=== PATIENT | female | born 1950 | race American Indian/Alaskan Native ===

== ENCOUNTER 2016-06-24 11:54 | Emergency (ER) | payer MEDICARE ==
--- NOTE | 2016-06-24 12:13 | Emergency Department Report ---
Chief Complaint: Abdominal Pain Stated Complaint: STOMACH PAIN Time Seen by Provider: 06/24/16 12:08 - HPI History of Present Illness: She is a 66-year-old female who presents to ED complaining of need, nonradiating , sharp, constant, 10/10 intensity abdominal pain 1 day. Patient states yesterday she is supposed to sounds and some wheezing when she lay down and after a while she began experiencing abdominal pain. Patient states this morning with COPD she had one episode of vomiting. Patient denies diarrhea or watery stools. Patient denies fevers/chills/sinus of restless chest pain/dizziness/headache or any other problems. - ROS Review of Systems: As noted in HPI - Exam Vital Signs: Vital Signs 06/24/16 11:56 Temperature 98.0 F Pulse Rate 65 Respiratory 21 Rate Blood Pressure 171/93 O2 Sat by Pulse 99 Oximetry Physical Exam: GENERAL: Alert and oriented x3, no apparent distress, Normal Gait, atraumatic. HEAD: Head is normocephalic and a-traumatic. NECK: Supple. Non edematous, No carotid bruits. No lymphadenopathy or thyromegaly. LUNGS: Symetrical with respiration, No wheezing, no rales or crackles, CTAB. HEART: S1, S2 present, regular rate and rhythm without murmur, no rubs, no gallops. ABDOMEN: No organomegaly was noted, obese rounded abdomen, Positive bowel sounds , soft, and non-distended. . Mild tenderness to palpation of the mid umbilical area. NO CVA tenderness. SKIN: Warm and dry, No lesions, No ulceration or induration present. MSE screening note: Focused history and physical exam performed. Due to findings the following was ordered: ED Medical Decision Making - Medical Decision Making Abdominal pain protocol ordered. Vital signs stable. Patient is in no acute or respiratory distress. Patient awaiting to see ED physician. ED Disposition for MSE Condition: Stable Instructions: Abdominal Pain (ED)
[2016-06-24 13:06] LABS: Basophils % (Auto) 0.3 % (0.0-1.8); Eosinophils % (Auto) 1.5 % (0.0-4.3); Hematocrit 40.2 % (30.3-42.9); Hemoglobin 13.5 gm/dl (10.1-14.3); Mean Corpuscular HGB Conc 34 % (30-34); Mean Corpuscular Hemoglobin 31 pg (28-32); Mean Corpuscular Volume 91 fl (79-97); Platelet Count 234 K/mm3 (140-440); Red Cell Distribution Width 14.1 % (13.2-15.2); White Blood Count 10.6 K/mm3 (4.5-11.0)
[2016-06-24 13:09] LABS: Bacteria,Urine 1+ /HPF (Negative); Bilirubin,Urine NEG (Negative); Blood,Urine NEG (Negative); Ketones,Urine NEG (Negative); Leukocyte Esterase,Urine NEG (Negative); Mucus,Urine FEW /HPF; Nitrite,Urine NEG (Negative); Urobilinogen,Urine < 2.0 mg/dL (<2.0)
[2016-06-24 13:32] LABS: Alanine Aminotransferase 9 units/L (7-56); Albumin 3.9 g/dL (3.9-5); Albumin/Globulin Ratio 1.1 %; Alkaline Phosphatase 71 units/L (35-129); Bilirubin,Total 0.4 mg/dL (0.1-1.2); Blood Urea Nitrogen 10 mg/dL (7-17); Calcium 9.6 mg/dL (8.4-10.2); Carbon Dioxide 26 mmol/L (22-30); Chloride 95.9 mmol/L (98-107); Glucose 231 mg/dL (65-100); Lipase 81 units/L (13-60); Potassium 4.6 mmol/L (3.6-5.0); Sodium 138 mmol/L (137-145); Total Protein 7.4 g/dL (6.3-8.2)
[2016-06-24 13:50] LABS: Anion Gap 21 mmol/L
[2016-06-24] MEDS ORDERED: ZOFRAN IV ONE (16:30)
[2016-06-24] MEDS ORDERED: MORPHINE IV ONE ×3 (16:30→17:00)
--- NOTE | 2016-06-24 16:32 | Emergency Department Report ---
ED Abdominal Pain HPI - General Chief Complaint: Abdominal Pain Stated Complaint: STOMACH PAIN Time Seen by Provider: 06/24/16 16:17 Source: patient, family Mode of arrival: Ambulatory Limitations: No Limitations - History of Present Illness Initial Comments: Patient here complaining of abdominal pain across her mid abdomen and radiating down to her lower abdomen since yesterday. She said it started after she ate anything was. She is complaining of nausea this morning and also vomiting 1. Denies any diarrhea. Denies any fever. No [id number] medication taken. She reports the pain is 10 out of 10 and feels sharp. Denies alcohol use. Denies any urinary burning frequency or urgency. MD Complaint: abdominal pain Onset/Timin -: days(s) Location: LUQ, RUQ Radiation: LLQ, RLQ Migration to: no migration Severity: severe Severity scale (0 -10): 10 Quality: sharp Consistency: constant Improves With: nothing Worsens With: eating, vomiting, movement Context: other (unknown) Associated Symptoms: nausea, vomiting. denies: diarrhea, fever, chills, constipation, dysuria, hematemesis, hematochezia, hematuria, anorexia, syncope - Related Data Previous Rx's Medication Instructions Recorded Last Taken Type AtorvaSTATin [Lipitor] 40 mg PO QHS #30 tablet 04/26/16 Unknown Rx Clopidogrel Bisulfate [Plavix] 75 mg PO DAILY #30 tablet 04/26/16 Unknown Rx FLUoxetine [PROzac] 20 mg PO QDAY #30 capsule 04/26/16 Unknown Rx Fenofibric Acid (Choline) 135 mg PO QDAY #30 capsule. 04/26/16 Unknown Rx [Trilipix] Insulin Aspart [NovoLOG Flexpen] 25 units SQ AC PRN #1 insuln.pen 04/26/16 Unknown Rx Insulin Detemir [Levemir VIAL] 30 units SUB-Q DAILY #1 vial 04/26/16 Unknown Rx Meloxicam [Mobic] 15 mg PO DAILY #15 tablet 04/26/16 Unknown Rx Metoprolol [Lopressor TAB] 25 mg PO DAILY #30 tablet 04/26/16 Unknown Rx Olmesartan/Amlodipin/Hcthiazid 1 each PO QDAY #30 tablet 04/26/16 Unknown Rx [Tribenzor 40-10-25 mg] Thyroid,Pork [Shingleton Thyroid] 120 mg PO DAILY #30 tablet 04/26/16 Unknown Rx Dicyclomine [Bentyl] 20 mg PO QID #10 tablet 06/24/16 Unknown Rx Promethazine [Phenergan TAB] 25 mg PO Q6HR PRN #20 tab 06/24/16 Unknown Rx oxyCODONE /ACETAMINOPHEN [Percocet 1 tab PO Q6HR PRN #16 tablet 06/24/16 Unknown Rx 5/325] Allergies Allergy/AdvReac Type Severity Reaction Status Date / Time ALEJANDRO Inhibitors Allergy Angioedema Verified 06/24/16 11:58 ED Review of Systems ROS: Stated complaint: STOMACH PAIN Other details as noted in HPI Comment: All other systems reviewed and negative Constitutional: denies: chills, fever Respiratory: no symptoms reported Cardiovascular: denies: chest pain, palpitations, edema, syncope Gastrointestinal: abdominal pain, nausea, vomiting. denies: diarrhea, constipation Genitourinary: denies: urgency, dysuria, frequency, hematuria, discharge, abnormal menses Musculoskeletal: denies: back pain, joint swelling, arthralgia Skin: denies: rash Neurological: denies: headache, weakness, numbness, paresthesias ED Past Medical Hx - Past Medical History Previous Medical History?: Yes Hx Hypertension: Yes Hx Congestive Heart Failure: No Hx Diabetes: Yes Hx Arthritis: Yes Hx Seizures: Yes (As a young child) Hx Asthma: No Hx COPD: No Hx HIV: No Additional medical history: 'thyroid problems'. CAD. HIGH CHOLESTEROL - Surgical History Past Surgical History?: Yes Hx Open Heart Surgery: Yes Additional Surgical History: x 2, kidney surgery - Family History Family history: no significant - Social History Smoking Status: Former Smoker Substance Use Type: None - Medications Home Medications: Home Medications Medication Instructions Recorded Confirmed Last Taken Type AtorvaSTATin [Lipitor] 40 mg PO QHS #30 tablet 04/26/16 Unknown Rx Clopidogrel Bisulfate [Plavix] 75 mg PO DAILY #30 tablet 04/26/16 Unknown Rx FLUoxetine [PROzac] 20 mg PO QDAY #30 capsule 04/26/16 Unknown Rx Fenofibric Acid (Choline) 135 mg PO QDAY #30 capsule. 04/26/16 Unknown Rx [Trilipix] Insulin Aspart [NovoLOG Flexpen] 25 units SQ AC PRN #1 insuln.pen 04/26/16 Unknown Rx Insulin Detemir [Levemir VIAL] 30 units SUB-Q DAILY #1 vial 04/26/16 Unknown Rx Meloxicam [Mobic] 15 mg PO DAILY #15 tablet 04/26/16 Unknown Rx Metoprolol [Lopressor TAB] 25 mg PO DAILY #30 tablet 04/26/16 Unknown Rx Olmesartan/Amlodipin/Hcthiazid 1 each PO QDAY #30 tablet 04/26/16 Unknown Rx [Tribenzor 40-10-25 mg] Thyroid,Pork [Shingleton Thyroid] 120 mg PO DAILY #30 tablet 04/26/16 Unknown Rx Dicyclomine [Bentyl] 20 mg PO QID #10 tablet 06/24/16 Unknown Rx Promethazine [Phenergan TAB] 25 mg PO Q6HR PRN #20 tab 06/24/16 Unknown Rx oxyCODONE /ACETAMINOPHEN [Percocet 1 tab PO Q6HR PRN #16 tablet 06/24/16 Unknown Rx 5/325] ED Physical Exam - General Limitations: No Limitations General appearance: alert, in no apparent distress - Head Head exam: Present: atraumatic, normocephalic, normal inspection - Eye Eye exam: Present: normal appearance, PERRL, EOMI. Absent: periorbital swelling , periorbital tenderness Pupils: Present: normal accommodation - ENT ENT exam: Present: normal exam, normal orophraynx, mucous membranes moist, TM's normal bilaterally, normal external ear exam - Neck Neck exam: Present: normal inspection, full ROM. Absent: tenderness, meningismus, lymphadenopathy - Respiratory Respiratory exam: Present: normal lung sounds bilaterally. Absent: respiratory distress, chest wall tenderness - Cardiovascular Cardiovascular Exam: Present: regular rate, normal rhythm, normal heart sounds - GI/Abdominal GI/Abdominal exam: Present: soft, tenderness, guarding, rebound, normal bowel sounds. Absent: rigid, organomegaly, mass, bruit, pulsatile mass, hernia - Extremities Exam Extremities exam: Present: normal inspection, full ROM, normal capillary refill. Absent: tenderness, pedal edema, joint swelling, calf tenderness - Back Exam Back exam: Present: normal inspection, full ROM. Absent: tenderness, CVA tenderness (R), CVA tenderness (L), muscle spasm, paraspinal tenderness, vertebral tenderness, rash noted - Neurological Exam Neurological exam: Present: alert, oriented X3, normal gait, reflexes normal. Absent: motor sensory deficit - Psychiatric Psychiatric exam: Present: normal affect, normal mood - Skin Skin exam: Present: warm, dry, intact, normal color. Absent: rash ED Course Vital Signs 06/24/16 11:56 Temperature 98.0 F Pulse Rate 65 Respiratory 21 Rate Blood Pressure 171/93 O2 Sat by Pulse 99 Oximetry Vital Signs 06/24/16 06/24/16 06/24/16 11:56 16:46 17:55 Temperature 98.0 F Pulse Rate 65 Respiratory 21 18 Rate Blood Pressure 171/93 Blood Pressure [Left] O2 Sat by Pulse 99 100 100 Oximetry 06/24/16 18:04 Temperature 97.7 F Pulse Rate 75 Respiratory 18 Rate Blood Pressure 202/114 Blood Pressure 164/90 [Left] O2 Sat by Pulse 94 Oximetry - Reevaluation(s) Reevaluation #1: 06/24/16 17:00 Patient given morphine 4 mg and Zofran 8 mg IV and awaiting IV CT to abdomen and pelvis 06/24/16 18:18 Reevaluation #2: 06/24/16 18:18 Patient pain controlled and nausea relief. She discharged home with pain medicine and nausea medication. ED Medical Decision Making - Lab Data Result diagrams: 06/24/16 12:37 06/24/16 12:37 Lab Results 06/24/16 06/24/16 06/24/16 Range/Units 12:37 12:37 12:37 WBC 10.6 (4.5-11.0) K/mm3 RBC 4.40 (3.65-5.03) M/mm3 Hgb 13.5 (10.1-14.3) gm/dl Hct 40.2 (30.3-42.9) % MCV 91 (79-97) fl MCH 31 (28-32) pg MCHC 34 (30-34) % RDW 14.1 (13.2-15.2) % Plt Count 234 (140-440) K/mm3 Lymph % (Auto) 17.5 (13.4-35.0) % Keith % (Auto) 4.3 (0.0-7.3) % Eos % (Auto) 1.5 (0.0-4.3) % Baso % (Auto) 0.3 (0.0-1.8) % Lymph # 1.8 (1.2-5.4) K/mm3 Keith # 0.5 (0.0-0.8) K/mm3 Eos # 0.2 (0.0-0.4) K/mm3 Baso # 0.0 (0.0-0.1) K/mm3 Seg Neutrophils % 76.4 H (40.0-70.0) % Seg Neutrophils # 8.1 H (1.8-7.7) K/mm3 Sodium (137-145) mmol/L Potassium (3.6-5.0) mmol/L Chloride (98-107) mmol/L Carbon Dioxide (22-30) mmol/L Anion Gap mmol/L BUN (7-17) mg/dL Creatinine (0.7-1.2) mg/dL Estimated GFR ml/min BUN/Creatinine Ratio % Glucose (65-100) mg/dL Calcium (8.4-10.2) mg/dL Total Bilirubin (0.1-1.2) mg/dL AST (5-40) units/L ALT (7-56) units/L Alkaline Phosphatase (35-129) units/L Total Protein (6.3-8.2) g/dL Albumin (3.9-5) g/dL Albumin/Globulin Ratio % Lipase (13-60) units/L HCG, Qual Negative (Negative) Urine Color Straw (Yellow) Urine Turbidity Clear (Clear) Urine pH 7.0 (5.0-7.0) Ur Specific [place] 1.010 (1.003-1.030) Urine Protein 100 mg/dl (Negative) mg/dL Urine Glucose (UA) 50 (Negative) mg/dL Urine Ketones Neg (Negative) mg/dL Urine Blood Neg (Negative) Urine Nitrite Neg (Negative) Urine Bilirubin Neg (Negative) Urine Urobilinogen < 2.0 (<2.0) mg/dL Ur Leukocyte Esterase Neg (Negative) Urine WBC (Auto) 1.0 (0.0-6.0) /HPF Urine RBC (Auto) 3.0 (0.0-6.0) /HPF U Epithel Cells (Auto) 2.0 (0-13.0) /HPF Urine Bacteria (Auto) 1+ (Negative) /HPF Urine Mucus Few /HPF 06/24/16 Range/Units 12:37 WBC (4.5-11.0) K/mm3 RBC (3.65-5.03) M/mm3 Hgb (10.1-14.3) gm/dl Hct (30.3-42.9) % MCV (79-97) fl MCH (28-32) pg MCHC (30-34) % RDW (13.2-15.2) % Plt Count (140-440) K/mm3 Lymph % (Auto) (13.4-35.0) % Keith % (Auto) (0.0-7.3) % Eos % (Auto) (0.0-4.3) % Baso % (Auto) (0.0-1.8) % Lymph # (1.2-5.4) K/mm3 Keith # (0.0-0.8) K/mm3 Eos # (0.0-0.4) K/mm3 Baso # (0.0-0.1) K/mm3 Seg Neutrophils % (40.0-70.0) % Seg Neutrophils # (1.8-7.7) K/mm3 Sodium 138 (137-145) mmol/L Potassium 4.6 (3.6-5.0) mmol/L Chloride 95.9 L (98-107) mmol/L Carbon Dioxide 26 (22-30) mmol/L Anion Gap 21 mmol/L BUN 10 (7-17) mg/dL Creatinine 0.8 (0.7-1.2) mg/dL Estimated GFR > 60 ml/min BUN/Creatinine Ratio 12.50 % Glucose 231 H (65-100) mg/dL Calcium 9.6 (8.4-10.2) mg/dL Total Bilirubin 0.4 (0.1-1.2) mg/dL AST 13 (5-40) units/L ALT 9 (7-56) units/L Alkaline Phosphatase 71 (35-129) units/L Total Protein 7.4 (6.3-8.2) g/dL Albumin 3.9 (3.9-5) g/dL Albumin/Globulin Ratio 1.1 % Lipase 81 H (13-60) units/L HCG, Qual (Negative) Urine Color (Yellow) Urine Turbidity (Clear) Urine pH (5.0-7.0) Ur Specific [place] (1.003-1.030) Urine Protein (Negative) mg/dL Urine Glucose (UA) (Negative) mg/dL Urine Ketones (Negative) mg/dL Urine Blood (Negative) Urine Nitrite (Negative) Urine Bilirubin (Negative) Urine Urobilinogen (<2.0) mg/dL Ur Leukocyte Esterase (Negative) Urine WBC (Auto) (0.0-6.0) /HPF Urine RBC (Auto) (0.0-6.0) /HPF U Epithel Cells (Auto) (0-13.0) /HPF Urine Bacteria (Auto) (Negative) /HPF Urine Mucus /HPF - Radiology Data Radiology results: report reviewed, image reviewed CT scan of the abdomen and pelvis with IV contrast revealed slight cardiomegaly , slight linear scar versus atelectasis in both lung bases, suggesting a mild hepatic steatosis, surgically absent gallbladder, uterus and possible appendix. Fat stranding in the right upper quadrant and adjacent to the pancreatic head suspicious for mild pancreatitis.. Pancreatic body and tail. - Medical Decision Making ED course: Patient here for abdominal pain and nausea. He was given morphine 4 mg IV and Zofran 8 mg IV which relieved her nausea and her abdominal pain. Urine results are negative for infection. CT scan of the abdomen and pelvis with IV contrast revealed mild pancreatitis. Lab work reveals lipase at 81 slightly elevated. I discussed lab results and diagnostic tests with patient. I discussed the patient that if pain and nausea vomiting is not controlled. Medication that she will need to return to emergency room otherwise follow-up with outpatient gastroenterology. Patient given Percocet 5/325 one tablet and then 20 mg IM prior to discharge. She voices understanding of discharge plan and discharged home with her family with prescription for Percocet, Bentyl and Phenergan. Critical care attestation.: If time is entered above; I have spent that time in minutes in the direct care of this critically ill patient, excluding procedure time. ED Disposition Clinical Impression: Hepatic steatosis, Abdominal pain in female patient Pancreatitis, acute Qualifiers: Pancreatitis type: unspecified pancreatitis type Acute pancreatitis complication: no infection or necrosis Qualified Code(s): K85.90 - Acute pancreatitis without necrosis or infection, unspecified Nausea & vomiting Qualifiers: Vomiting type: unspecified Vomiting Intractability: non-intractable Qualified Code(s): R11.2 - Nausea with vomiting, unspecified Disposition: DISCHARGED TO HOME OR SELFCARE Is pt being admited?: No Does the pt Need Aspirin: No Condition: Stable Instructions: Abdominal Pain (ED), Pancreatitis (ED), Non-Alcoholic Fatty Liver Disease (ED), Acute Nausea and Vomiting (ED), Clear Liquid Diet (ED) Additional Instructions: Please follow up with motor vehicle field representative as instructed. Clear liquid diet for 72 hours. Take medication as instructed. Please return to emergency room if nausea, vomiting and abdominal pain is not controlled with medication Please check your blood sugar frequently while on clear liquid diet medication. Prescriptions: Dicyclomine [Bentyl] 20 mg PO QID #10 tablet oxyCODONE /ACETAMINOPHEN [Percocet 5/325] 1 tab PO Q6HR PRN #16 tablet PRN Reason: Pain Promethazine [Phenergan TAB] 25 mg PO Q6HR PRN #20 tab PRN Reason: Nausea Referrals: PRIMARY CAREMD [Primary Care Provider] - 06/26/16 [facility] [Provider Group] - 06/26/16 Forms: Accompanied Note, Work/School Release Form(ED)
[2016-06-24] MEDS ORDERED: NACL ONE (16:52)
--- NOTE | 2016-06-24 17:46 | Cat Scan Report ---
FINAL REPORT EXAM: CT ABDOMEN PELVIS W CON HISTORY: abdominal pain with nausea TECHNIQUE: CT examination of the ABDOMEN after IV contrast CT examination of the PELVIS after IV contrast PRIORS: 04/25/2016 FINDINGS: Slight linear scar versus atelectasis in both lung bases. Healed right rib fractures. Slight cardiomegaly in visualized portion of heart. Nonspecific diffusely decreased density of liver parenchyma may reflect fatty infiltration. No visualized focal liver lesion. Surgically absent gallbladder. Normal-appearing adrenals and spleen. Intact normal caliber abdominal aorta with moderate calcified and noncalcified plaque. Normal caliber IVC. Abnormal fat stranding is noted adjacent to the pancreatic head with extension into the right upper quadrant fat. No abnormal fluid collection. Findings suspicious for mild pancreatitis. Normal-appearing pancreatic body and tail. Normal-appearing kidneys and ureters. Normal-appearing stomach and duodenum. No small bowel distention in the abdomen and pelvis. No pelvic free fluid. Normal-appearing urinary bladder, rectum, and adnexa. Surgically absent uterus. Normal-appearing sigmoid colon. No gross ascites, free air, or colonic distention. Normal-appearing cecum and terminal ileum. Appendix not visualized. No pericecal inflammation. IMPRESSION: Fat stranding in right upper quadrant and adjacent to the pancreatic head suspicious for mild pancreatitis. Normal-appearing pancreatic body and tail Slight cardiomegaly Slight linear scar versus atelectasis in both lung bases Suggestion of mild hepatic steatosis Surgically absent gallbladder, uterus, and possibly appendix
[2016-06-24] MEDS ORDERED: BENTYL IM ONE (18:19)
[2016-06-24] MEDS ORDERED: PERCOCET 5/325 PO ONE (18:19)
[2016-06-24 18:21] VITALS: BP 164/90
--- NOTE | 2016-06-25 02:58 | Admit Criteria Form ---
Admission Criteria Documentation: ABDOMINAL PAIN Clinical Indications for Admission to Inpatient Care (Place 'X' for any and all applicable criteria): Admission is indicated for ANY ONE of the following(1)(2)(3)(4)(5): [X ]I. Inpatient admission required rather than observation care (Also use Abdominal Pain: Observation Care, as appropriate) because of ANY ONE of the following: [ ]a) Severe pain requiring acute inpatient management [X ]b) Identification of etiology/finding that requires inpatient care (eg, aortic dissection, free air) [ ]c) Absent bowel sounds with complete ileus(6) [ ]d) Suspected toxic megacolon [ ]e) Severe electrolyte abnormalities requiring inpatient care [ ]f) High fever or infection requiring inpatient admission as indicated by ANY ONE of following(7)(8): [ ] i) Appropriate outpatient or observational care antimicrobial treatment unavailable, not effective, or not feasible [ ] ii) Documented bacteremia [ ] iii) Temperature > 104.9 degrees F (oral) [ ] iv) T >103.1 F (oral) or < 96.8 F(rectal) that does not respond to all emergency treatment measures [ ]g) Signs of intestinal obstruction [B] [ ]h) Hemodynamic instability [ ]i) IV fluid to replace significant ongoing losses (greater than 3 L/m2 per day) (12)(13) [ ]j) Percutaneous or open drainage (eg, abscess, biliary tract ) procedures [ ]k) Parenteral nutrition regimen that must be implemented on inpatient basis [X ]l) Other condition,treatment or monitoring requiring inpatient admission. [ ]II. Peritoneal signs present [ ]III. Surgery needed that cannot be performed on an ambulatory basis. [ ]IV. Evaluation requires patient to not eat or drink for extended period ( eg, more than 24 hours). [ ]V. Contraindications and/or Inappropriate clinical situations for Observational Care in patients with abdominal pain, when ANY ONE of the following is required: [ ]a) Thorough evaluation is required to prevent catastrophic events due to delays in diagnosing (e.g.Mesenteric ischemia) 1,3 [ ]b) Patient with severe pathology or with chronic symptoms unlikely to improve in the ED stay (3) [ ]. General contraindications and/or Inappropriate clinical situations for Observational Care in patients with abdominal pain, when ANY ONE of the following is required: [ ]a) Prediction of prolongation of LOS based on ANY ONE of the following may be considered as a contraindication for observational care 2, 3, 4, 5, 6, 7, 8, 9, 10, 11 [ ]i) Age > 65 yrs. [ ]ii) Patient arriving by ambulance [ ]iii) Patient with high acuity [ ]iv) Patient requiring vital sign monitoring [ ]v) Patient on IV medication [ ]b) Systolic blood pressures 180mmHg 3,12 [ ]c) Patient with altered mental status including delirium and other alteration of consciousness, (3) [ ]d) Patient whose discharge disposition will be to a detention home or rehabilitation home should not be managed in Emergency Department Observation Unit. CMS rule requires 3 days hospital stay before such placement.3,13 [ ]e) Patient with failure to thrive due to broad array of etiologies 3,16,17 [ ]f) Inability to ambulate 3,14 Extended stay beyond goal length of stay may be needed for(2)(3): [ ]a) Persistent abdominal pain with suspected intra-abdominal process [ ]b) Diagnosed condition requiring continued stay (e.g., pancreatitis, complicated diverticulitis) [ ]c) Surgery (e.g., colectomy) The original [facility] content created by [employer] has been revised. The portions of the content which have been revised are identified through the use of italic text or in bold, and [facility] has neither reviewed nor approved the modified material.All other unmodified content is copyright [facility]. Please see references footnoted in the original [facility] edition 2016 Admission Criteria Met: Yes
== END 2016-06-24 18:05 | disposition home or self-care (01) ==
LOC: ED 11:54
DX: K76.0 Fatty (change of) liver, not elsewhere classified (principal); K85.90 Acute pancreatitis without necrosis or infection, unspecified; R11.2 Nausea with vomiting, unspecified; R10.9 Unspecified abdominal pain; I10 Essential (primary) hypertension; E11.9 Type 2 diabetes mellitus without complications; M19.90 Unspecified osteoarthritis, unspecified site; Z87.891 Personal history of nicotine dependence; Z79.4 Long term (current) use of insulin; Z88.8 Allergy status to other drugs, medicaments and biological substances
CPT/HCPCS: 36415; 74177; 80053; 81001; 83690; 84703; 85025; 96372; 96374; 96375; 99284; J0500; J2270; J2405; Q9967

== ENCOUNTER 2016-07-06 12:48 | Emergency (ER) | payer MEDICARE ==
[2016-07-06] MEDS ORDERED: ZOFRAN IV ONE ×2 (13:58→18:13)
[2016-07-06] MEDS ORDERED: NACL 0.9% 1000 ML 1,000 ML IV ONE (13:58)
[2016-07-06] MEDS ORDERED: PEPCID IV ONE (13:58)
[2016-07-06] MEDS ORDERED: MORPHINE IV ONE ×2 (13:58→18:13)
--- NOTE | 2016-07-06 13:59 | Admit Criteria Form ---
Admission Criteria Documentation: ABDOMINAL PAIN Clinical Indications for Admission to Inpatient Care (Place 'X' for any and all applicable criteria): Admission is indicated for ANY ONE of the following(1)(2)(3)(4)(5): [ ]I. Inpatient admission required rather than observation care (Also use Abdominal Pain: Observation Care, as appropriate) because of ANY ONE of the following: [ ]a) Severe pain requiring acute inpatient management [ ]b) Identification of etiology/finding that requires inpatient care (eg, aortic dissection, free air) [ ]c) Absent bowel sounds with complete ileus(6) [ ]d) Suspected toxic megacolon [ ]e) Severe electrolyte abnormalities requiring inpatient care [ ]f) High fever or infection requiring inpatient admission as indicated by ANY ONE of following(7)(8): [ ] i) Appropriate outpatient or observational care antimicrobial treatment unavailable, not effective, or not feasible [ ] ii) Documented bacteremia [ ] iii) Temperature > 104.9 degrees F (oral) [ ] iv) T >103.1 F (oral) or < 96.8 F(rectal) that does not respond to all emergency treatment measures [ ]g) Signs of intestinal obstruction [B] [ ]h) Hemodynamic instability [ ]i) IV fluid to replace significant ongoing losses (greater than 3 L/m2 per day) (12)(13) [ ]j) Percutaneous or open drainage (eg, abscess, biliary tract ) procedures [ ]k) Parenteral nutrition regimen that must be implemented on inpatient basis [ ]l) Other condition,treatment or monitoring requiring inpatient admission. [ ]II. Peritoneal signs present [ ]III. Surgery needed that cannot be performed on an ambulatory basis. [ ]IV. Evaluation requires patient to not eat or drink for extended period ( eg, more than 24 hours). [ ]V. Contraindications and/or Inappropriate clinical situations for Observational Care in patients with abdominal pain, when ANY ONE of the following is required: [ ]a) Thorough evaluation is required to prevent catastrophic events due to delays in diagnosing (e.g.Mesenteric ischemia) 1,3 [ ]b) Patient with severe pathology or with chronic symptoms unlikely to improve in the ED stay (3) [X ]. General contraindications and/or Inappropriate clinical situations for Observational Care in patients with abdominal pain, when ANY ONE of the following is required: [X ]a) Prediction of prolongation of LOS based on ANY ONE of the following may be considered as a contraindication for observational care 2, 3, 4, 5, 6, 7, 8, 9, 10, 11 [ X]i) Age > 65 yrs. [ ]ii) Patient arriving by ambulance [ ]iii) Patient with high acuity [ ]iv) Patient requiring vital sign monitoring [ ]v) Patient on IV medication [ ]b) Systolic blood pressures 180mmHg 3,12 [ ]c) Patient with altered mental status including delirium and other alteration of consciousness, (3) [ ]d) Patient whose discharge disposition will be to a custodial home or rehabilitation home should not be managed in Emergency Department Observation Unit. CMS rule requires 3 days hospital stay before such placement.3,13 [ ]e) Patient with failure to thrive due to broad array of etiologies 3,16,17 [ ]f) Inability to ambulate 3,14 Extended stay beyond goal length of stay may be needed for(2)(3): [ ]a) Persistent abdominal pain with suspected intra-abdominal process [ ]b) Diagnosed condition requiring continued stay (e.g., pancreatitis, complicated diverticulitis) [ ]c) Surgery (e.g., colectomy) The original [facility] content created by [employer] has been revised. The portions of the content which have been revised are identified through the use of italic text or in bold, and [facility] has neither reviewed nor approved the modified material.All other unmodified content is copyright [facility]. Please see references footnoted in the original [facility] edition 2016
--- NOTE | 2016-07-06 14:03 | Emergency Department Report ---
ED Abdominal Pain HPI - General Chief Complaint: Abdominal Pain Stated Complaint: ABD PAIN Time Seen by Provider: 07/06/16 13:48 Source: patient Mode of arrival: Ambulatory Limitations: No Limitations - History of Present Illness Initial Comments: 66-year-old female presents to the emergency department complaining of abdominal pain. Patient states she has been having upper abdominal pain for approximately one month. She describes a burning sensation. The pain will occasionally radiate into her chest. She reports associated nausea and vomiting. Patient states he was seen by her primary care physician yesterday and underwent an EGD. She was told that her stomach was irritated. She was started on Prilosec. Patient also states that she has been out of her blood pressure medication for several days. There are no other complaints. MD Complaint: abdominal pain -: Gradual, month(s) (1) Location: epigastric Radiation: chest Migration to: no migration Severity: moderate Quality: burning Consistency: intermittent Improves With: nothing Worsens With: nothing Associated Symptoms: nausea, vomiting - Related Data Previous Rx's Medication Instructions Recorded Last Taken Type AtorvaSTATin [Lipitor] 40 mg PO QHS #30 tablet 04/26/16 Unknown Rx Clopidogrel Bisulfate [Plavix] 75 mg PO DAILY #30 tablet 04/26/16 Unknown Rx FLUoxetine [PROzac] 20 mg PO QDAY #30 capsule 04/26/16 Unknown Rx Fenofibric Acid (Choline) 135 mg PO QDAY #30 capsule.dr 04/26/16 Unknown Rx [Trilipix] Insulin Aspart [NovoLOG Flexpen] 25 units SQ AC PRN #1 insuln.pen 04/26/16 Unknown Rx Insulin Detemir [Levemir VIAL] 30 units SUB-Q DAILY #1 vial 04/26/16 Unknown Rx Meloxicam [Mobic] 15 mg PO DAILY #15 tablet 04/26/16 Unknown Rx Metoprolol [Lopressor TAB] 25 mg PO DAILY #30 tablet 04/26/16 Unknown Rx Olmesartan/Amlodipin/Hcthiazid 1 each PO QDAY #30 tablet 04/26/16 Unknown Rx [Tribenzor 40-10-25 mg] Thyroid,Pork [[place] Thyroid] 120 mg PO DAILY #30 tablet 04/26/16 Unknown Rx Dicyclomine [Bentyl] 20 mg PO QID #10 tablet 06/24/16 Unknown Rx oxyCODONE /ACETAMINOPHEN [Percocet 1 tab PO Q6HR PRN #16 tablet 06/24/16 Unknown Rx 5/325] HYDROcodone/APAP 5-325 [[place] 1 each PO Q6HR PRN #20 tablet 07/06/16 Unknown Rx 5/325] Promethazine [Phenergan TAB] 25 mg PO Q6HR PRN #20 tab 07/06/16 Unknown Rx Allergies Allergy/AdvReac Type Severity Reaction Status Date / Time ALEJANDRO Inhibitors Allergy Angioedema Verified 06/24/16 11:58 ED Review of Systems ROS: Stated complaint: ABD PAIN Other details as noted in HPI Comment: All other systems reviewed and negative Gastrointestinal: abdominal pain, nausea, vomiting ED Past Medical Hx - Past Medical History Previous Medical History?: Yes Hx Hypertension: Yes Hx Congestive Heart Failure: No Hx Diabetes: Yes Hx Arthritis: Yes Hx Seizures: Yes (As a young child) Hx Asthma: No Hx COPD: No Hx HIV: No Additional medical history: 'thyroid problems'. CAD. HIGH CHOLESTEROL - Surgical History Past Surgical History?: Yes Hx Open Heart Surgery: Yes Additional Surgical History: x 2, kidney surgery - Family History Family history: no significant - Social History Smoking Status: Former Smoker Substance Use Type: None - Medications Home Medications: Home Medications Medication Instructions Recorded Confirmed Last Taken Type AtorvaSTATin [Lipitor] 40 mg PO QHS #30 tablet 04/26/16 Unknown Rx Clopidogrel Bisulfate [Plavix] 75 mg PO DAILY #30 tablet 04/26/16 Unknown Rx FLUoxetine [PROzac] 20 mg PO QDAY #30 capsule 04/26/16 Unknown Rx Fenofibric Acid (Choline) 135 mg PO QDAY #30 capsule. 04/26/16 Unknown Rx [Trilipix] Insulin Aspart [NovoLOG Flexpen] 25 units SQ AC PRN #1 insuln.pen 04/26/16 Unknown Rx Insulin Detemir [Levemir VIAL] 30 units SUB-Q DAILY #1 vial 04/26/16 Unknown Rx Meloxicam [Mobic] 15 mg PO DAILY #15 tablet 04/26/16 Unknown Rx Metoprolol [Lopressor TAB] 25 mg PO DAILY #30 tablet 04/26/16 Unknown Rx Olmesartan/Amlodipin/Hcthiazid 1 each PO QDAY #30 tablet 04/26/16 Unknown Rx [Tribenzor 40-10-25 mg] Thyroid,Pork [[place] Thyroid] 120 mg PO DAILY #30 tablet 04/26/16 Unknown Rx Dicyclomine [Bentyl] 20 mg PO QID #10 tablet 06/24/16 Unknown Rx oxyCODONE /ACETAMINOPHEN [Percocet 1 tab PO Q6HR PRN #16 tablet 06/24/16 Unknown Rx 5/325] HYDROcodone/APAP 5-325 [[place] 1 each PO Q6HR PRN #20 tablet 07/06/16 Unknown Rx 5/325] Promethazine [Phenergan TAB] 25 mg PO Q6HR PRN #20 tab 07/06/16 Unknown Rx ED Physical Exam - General Limitations: No Limitations General appearance: alert, in no apparent distress - Head Head exam: Present: atraumatic, normocephalic - Eye Eye exam: Present: normal appearance, PERRL, EOMI - ENT ENT exam: Present: normal exam, normal orophraynx, mucous membranes moist - Neck Neck exam: Present: normal inspection, full ROM. Absent: tenderness - Respiratory Respiratory exam: Present: normal lung sounds bilaterally. Absent: respiratory distress - Cardiovascular Cardiovascular Exam: Present: regular rate, normal rhythm, normal heart sounds - GI/Abdominal GI/Abdominal exam: Present: soft, tenderness (mild epigastric tenderness to palpation), normal bowel sounds. Absent: distended, guarding, rebound - Extremities Exam Extremities exam: Present: normal inspection, full ROM. Absent: tenderness - Back Exam Back exam: Present: normal inspection, full ROM. Absent: tenderness - Neurological Exam Neurological exam: Present: alert, oriented X3. Absent: motor sensory deficit - Skin Skin exam: Present: warm, dry, intact ED Course Vital Signs 07/06/16 07/06/16 07/06/16 13:30 14:00 14:18 Temperature 99.0 F Pulse Rate 68 77 Respiratory 20 18 Rate Blood Pressure 225/121 Blood Pressure 191/104 [Right] O2 Sat by Pulse 97 96 94 Oximetry 07/06/16 07/06/16 07/06/16 14:52 15:00 15:22 Temperature Pulse Rate Respiratory 16 16 Rate Blood Pressure 215/97 Blood Pressure [Right] O2 Sat by Pulse 88 Oximetry 07/06/16 07/06/16 16:00 16:37 Temperature Pulse Rate Respiratory 18 Rate Blood Pressure 189/94 Blood Pressure [Right] O2 Sat by Pulse 94 96 Oximetry ED Medical Decision Making - Lab Data Result diagrams: 07/06/16 13:46 07/06/16 13:46 - EKG Data -: EKG Interpreted by Me EKG shows normal: sinus rhythm, axis, intervals, QRS complexes, ST-T waves Rate: normal - EKG Data When compared to previous EKG there are: previous EKG unavailable Interpretation: normal EKG - Medical Decision Making Lab results reviewed and discussed with the patient. Patient reports symptoms are improved with medication. Patient will be discharged home at this time to follow up with her primary care physician. - Differential Diagnosis gastritis, pancreatitis, PUD, atypical chest pain Critical care attestation.: If time is entered above; I have spent that time in minutes in the direct care of this critically ill patient, excluding procedure time. ED Disposition Clinical Impression: Acute gastritis without hemorrhage Qualifiers: Gastritis type: unspecified gastritis Qualified Code(s): K29.00 - Acute gastritis without bleeding Disposition: DISCHARGED TO HOME OR SELFCARE Is pt being admited?: No Condition: Stable Instructions: Gastritis (ED) Prescriptions: HYDROcodone/APAP 5-325 [[place] 5/325] 1 each PO Q6HR PRN #20 tablet PRN Reason: Pain Promethazine [Phenergan TAB] 25 mg PO Q6HR PRN #20 tab PRN Reason: Nausea Referrals: PRIMARY CARE, [Primary Care Provider] - 3-5 Days Time of Disposition: 18:45
[2016-07-06 14:06] LABS: Basophils % (Auto) 0.6 % (0.0-1.8); Eosinophils % (Auto) 1.7 % (0.0-4.3); Hematocrit 42.2 % (30.3-42.9); Hemoglobin 13.8 gm/dl (10.1-14.3); Mean Corpuscular HGB Conc 33 % (30-34); Mean Corpuscular Hemoglobin 30 pg (28-32); Mean Corpuscular Volume 92 fl (79-97); Platelet Count 386 K/mm3 (140-440); Red Blood Count 4.57 M/mm3 (3.65-5.03); Red Cell Distribution Width 13.6 % (13.2-15.2); White Blood Count 12.8 K/mm3 (4.5-11.0)
[2016-07-06 14:24] LABS: Alanine Aminotransferase 9 units/L (7-56); Albumin 4.1 g/dL (3.9-5); Albumin/Globulin Ratio 1.1 %; Alkaline Phosphatase 75 units/L (35-129); Anion Gap 23 mmol/L; Bilirubin,Total 0.5 mg/dL (0.1-1.2); Blood Urea Nitrogen 6 mg/dL (7-17); Calcium 9.7 mg/dL (8.4-10.2); Carbon Dioxide 29 mmol/L (22-30); Chloride 96.3 mmol/L (98-107); Glucose 261 mg/dL (65-100); Lipase 48 units/L (13-60); Sodium 144 mmol/L (137-145); Total Protein 7.9 g/dL (6.3-8.2)
[2016-07-06] MEDS ORDERED: CARAFATE PO ONE (15:33)
[2016-07-06] MEDS ORDERED: DIOVAN PO ONE (17:09)
[2016-07-06 19:02] VITALS: BP 176/89
== END 2016-07-06 18:45 | disposition home or self-care (01) ==
LOC: ED 12:48
DX: K29.00 Acute gastritis without bleeding (principal); I10 Essential (primary) hypertension; E11.9 Type 2 diabetes mellitus without complications; M19.90 Unspecified osteoarthritis, unspecified site; R56.9 Unspecified convulsions; E78.00 Pure hypercholesterolemia, unspecified; I25.10 Atherosclerotic heart disease of native coronary artery without angina pectoris; Z79.4 Long term (current) use of insulin; Z87.891 Personal history of nicotine dependence; Z88.8 Allergy status to other drugs, medicaments and biological substances
CPT/HCPCS: 36415; 80053; 83690; 85025; 93005; 93010; 96361; 96374; 96375; 96376; 99283; J2270; J2405; J7030

== ENCOUNTER 2016-12-29 07:09 | Emergency (ER) | payer MEDICARE ==
[2016-12-29 08:01] LABS: Basophils % (Auto) 0.8 % (0.0-1.8); Eosinophils % (Auto) 3.3 % (0.0-4.3); Hematocrit 41.8 % (30.3-42.9); Hemoglobin 13.9 gm/dl (10.1-14.3); Mean Corpuscular HGB Conc 33 % (30-34); Mean Corpuscular Hemoglobin 31 pg (28-32); Mean Corpuscular Volume 92 fl (79-97); Platelet Count 216 K/mm3 (140-440); Red Blood Count 4.53 M/mm3 (3.65-5.03); Red Cell Distribution Width 13.9 % (13.2-15.2)
[2016-12-29 08:04] LABS: Bacteria,Urine 1+ /HPF (Negative); Bilirubin,Urine NEG (Negative); Blood,Urine NEG (Negative); Ketones,Urine NEG (Negative); Leukocyte Esterase,Urine NEG (Negative); Mucus,Urine FEW /HPF; Nitrite,Urine NEG (Negative); Urobilinogen,Urine < 2.0 mg/dL (<2.0)
[2016-12-29 08:14] LABS: Alanine Aminotransferase 12 units/L (7-56); Albumin 3.8 g/dL (3.9-5); Albumin/Globulin Ratio 1.1 %; Alkaline Phosphatase 78 units/L (35-129); Anion Gap 18 mmol/L; BUN/Creatinine Ratio 13.75; Blood Urea Nitrogen 11 mg/dL (7-17); Calcium 9.4 mg/dL (8.4-10.2); Carbon Dioxide 30 mmol/L (22-30); Chloride 97.3 mmol/L (98-107); Glucose 182 mg/dL (65-100); Potassium 4.8 mmol/L (3.6-5.0); Sodium 140 mmol/L (137-145); Total Protein 7.4 g/dL (6.3-8.2)
[2016-12-29] MEDS ORDERED: MORPHINE IM ONE (08:52)
[2016-12-29] MEDS ORDERED: ZOFRAN IM ONE (08:52)
[2016-12-29] MEDS ORDERED: CATAPRES PO ONE (08:52)
--- NOTE | 2016-12-29 09:12 | Emergency Department Report ---
ED Headache HPI - General Chief Complaint: Headache Stated Complaint: HEADACHE Time Seen by Provider: 12/29/16 08:51 Source: patient Exam Limitations: no limitations - History of Present Illness Initial Comments: HEADACHE STARTED TWO DAYS. PATIENT THINK THIS IS DUE TO HER HIGH BP. H/O MIGRAINE, SLIGHTLY DIFFERENT FROM HER PREVIOUS. Quality: moderate, pressure Recent Head Trauma: frequent headaches Associated Symptoms: denies: denies symptoms, confusion, fatigue, facial pain, fever/chills, flushing, loss of consciousness, nausea/vomiting, nasal congestion , nasal drainage, numbness in legs/feet, rash, seizures, sinus infection, stiff neck, vision changes, weakness, other Allergies/Adverse Reactions: Allergies ALEJANDRO Inhibitors Allergy (Verified 12/29/16 07:24) Angioedema Home Medications: Ambulatory Orders AtorvaSTATin [Lipitor] 40 mg PO QHS #30 tablet 04/26/16 Clopidogrel Bisulfate [Plavix] 75 mg PO DAILY #30 tablet 04/26/16 FLUoxetine [PROzac] 20 mg PO QDAY #30 capsule 04/26/16 Fenofibric Acid (Choline) [Trilipix] 135 mg PO QDAY #30 capsule.dr 04/26/16 Insulin Aspart [NovoLOG Flexpen] 25 units SQ AC PRN #1 insuln.pen 04/26/16 Insulin Detemir [Levemir VIAL] 30 units SUB-Q DAILY #1 vial 04/26/16 Meloxicam [Mobic] 15 mg PO DAILY #15 tablet 04/26/16 Metoprolol [Lopressor TAB] 25 mg PO DAILY #30 tablet 04/26/16 Olmesartan/Amlodipin/Hcthiazid [Tribenzor 40-10-25 mg] 1 each PO QDAY #30 tablet 04/26/16 Thyroid,Pork [[place] Thyroid] 120 mg PO DAILY #30 tablet 04/26/16 Dicyclomine [Bentyl] 20 mg PO QID #10 tablet 06/24/16 oxyCODONE /ACETAMINOPHEN [Percocet 5/325] 1 tab PO Q6HR PRN #16 tablet 06/24/16 HYDROcodone/APAP 5-325 [[place] 5/325] 1 each PO Q6HR PRN #20 tablet 07/06/16 Promethazine [Phenergan TAB] 25 mg PO Q6HR PRN #20 tab 07/06/16 Amoxicillin [Amoxicillin TAB] 875 mg PO BID #14 tablet 12/29/16 Ondansetron [Zofran Odt] 4 mg PO Q8HR PRN #14 tab.rapdis 12/29/16 traMADol [Ultram] 50 mg PO Q6HR PRN #14 tablet 12/29/16 ED Review of Systems ROS: Stated complaint: HEADACHE Other details as noted in HPI Comment: All other systems reviewed and negative Constitutional: denies: chills, fever ENT: denies: throat pain Respiratory: denies: cough, shortness of breath, SOB with exertion Cardiovascular: denies: chest pain, palpitations, syncope Gastrointestinal: denies: abdominal pain, nausea, vomiting Neurological: headache. denies: weakness, numbness ED Past Medical Hx - Past Medical History Hx Hypertension: Yes Hx Congestive Heart Failure: No Hx Diabetes: Yes Hx Arthritis: Yes Hx Seizures: Yes (As a young child) Hx Asthma: No Hx COPD: No Hx HIV: No Additional medical history: 'thyroid problems'. CAD. HIGH CHOLESTEROL - Surgical History Hx Open Heart Surgery: Yes Additional Surgical History: x 2, kidney surgery - Social History Smoking Status: Never Smoker Substance Use Type: None - Medications Home Medications: Home Medications Medication Instructions Recorded Confirmed Last Taken Type AtorvaSTATin [Lipitor] 40 mg PO QHS #30 tablet 04/26/16 Unknown Rx Clopidogrel Bisulfate [Plavix] 75 mg PO DAILY #30 tablet 04/26/16 Unknown Rx FLUoxetine [PROzac] 20 mg PO QDAY #30 capsule 04/26/16 Unknown Rx Fenofibric Acid (Choline) 135 mg PO QDAY #30 capsule. 04/26/16 Unknown Rx [Trilipix] Insulin Aspart [NovoLOG Flexpen] 25 units SQ AC PRN #1 insuln.pen 04/26/16 Unknown Rx Insulin Detemir [Levemir VIAL] 30 units SUB-Q DAILY #1 vial 04/26/16 Unknown Rx Meloxicam [Mobic] 15 mg PO DAILY #15 tablet 04/26/16 Unknown Rx Metoprolol [Lopressor TAB] 25 mg PO DAILY #30 tablet 04/26/16 Unknown Rx Olmesartan/Amlodipin/Hcthiazid 1 each PO QDAY #30 tablet 04/26/16 Unknown Rx [Tribenzor 40-10-25 mg] Thyroid,Pork [[place] Thyroid] 120 mg PO DAILY #30 tablet 04/26/16 Unknown Rx Dicyclomine [Bentyl] 20 mg PO QID #10 tablet 06/24/16 Unknown Rx oxyCODONE /ACETAMINOPHEN [Percocet 1 tab PO Q6HR PRN #16 tablet 06/24/16 Unknown Rx 5/325] HYDROcodone/APAP 5-325 [[place] 1 each PO Q6HR PRN #20 tablet 07/06/16 Unknown Rx 5/325] Promethazine [Phenergan TAB] 25 mg PO Q6HR PRN #20 tab 07/06/16 Unknown Rx Amoxicillin [Amoxicillin TAB] 875 mg PO BID #14 tablet 12/29/16 Unknown Rx Ondansetron [Zofran Odt] 4 mg PO Q8HR PRN #14 tab.rapdis 12/29/16 Unknown Rx traMADol [Ultram] 50 mg PO Q6HR PRN #14 tablet 12/29/16 Unknown Rx ED Physical Exam - General Limitations: No Limitations General appearance: alert, in no apparent distress - Head Head exam: Present: atraumatic, normocephalic - Eye Eye exam: Present: normal appearance Pupils: Present: normal accommodation - ENT ENT exam: Present: normal exam, normal orophraynx - Neck Neck exam: Present: normal inspection, full ROM. Absent: tenderness, meningismus, lymphadenopathy - Respiratory Respiratory exam: Present: normal lung sounds bilaterally. Absent: wheezes, rales, rhonchi, chest wall tenderness, decreased breath sounds - Cardiovascular Cardiovascular Exam: Present: regular rate, normal rhythm, normal heart sounds - GI/Abdominal GI/Abdominal exam: Present: soft. Absent: tenderness, guarding, rebound - Back Exam Back exam: Present: normal inspection. Absent: CVA tenderness (R), CVA tenderness (L) - Neurological Exam Neurological exam: Present: alert, oriented X3, CN II-XII intact, normal gait, reflexes normal. Absent: motor sensory deficit - Skin Skin exam: Present: warm, intact ED Course Vital Signs 12/29/16 12/29/16 12/29/16 07:20 09:32 09:45 Temperature 97.9 F Pulse Rate 62 61 Respiratory 19 16 Rate Blood Pressure 217/109 245/111 Blood Pressure 217/109 245/111 [Right] O2 Sat by Pulse 100 97 100 Oximetry 12/29/16 12/29/16 12/29/16 09:46 10:00 10:16 Temperature Pulse Rate 59 L 59 L 55 L Respiratory 16 16 Rate Blood Pressure Blood Pressure 229/112 217/106 199/94 [Right] O2 Sat by Pulse 96 95 93 Oximetry 12/29/16 12/29/16 10:31 10:57 Temperature Pulse Rate 56 L 57 L Respiratory 16 16 Rate Blood Pressure Blood Pressure 179/89 156/87 [Right] O2 Sat by Pulse 93 93 Oximetry - Reevaluation(s) Reevaluation #1: 12/29/16 11:40 Patient stated that she is feeling much better headache is completely resolve her blood pressure now is 1 156/80. ED Medical Decision Making - Lab Data Result diagrams: 12/29/16 07:41 12/29/16 07:41 Critical care attestation.: If time is entered above; I have spent that time in minutes in the direct care of this critically ill patient, excluding procedure time. ED Disposition Clinical Impression: Headache Disposition: DC-01 TO HOME OR SELFCARE Is pt being admited?: No Condition: Stable Instructions: Acute Headache (ED) Prescriptions: Amoxicillin [Amoxicillin TAB] 875 mg PO BID #14 tablet Ondansetron [Zofran Odt] 4 mg PO Q8HR PRN #14 tab.rapdis PRN Reason: Nausea And Vomiting traMADol [Ultram] 50 mg PO Q6HR PRN #14 tablet PRN Reason: Pain Referrals: PRIMARY CARE, [Primary Care Provider] - 3-5 Days
--- NOTE | 2016-12-29 09:59 | Cat Scan Report ---
CT HEAD WITHOUT CONTRAST INDICATION: Headache, high blood pressure. COMPARISON: 02/16/2015. FINDINGS: Noncontrast head CT demonstrates stable ventricles and sulci, benign bilateral basal ganglia calcification and extensive periventricular and white matter hypodensities extending into the centrum semiovale as well. Though difficult to reliably detect in this setting, no definite acute infarct, hemorrhage mass effect or midline shift. Stable 5 mm left ganglionic lacunar infarct, axial image 25, series 2. No abnormal extra axial fluid collections. Stable posterior fossa with preserved basilar cisterns. Normal eye globes. Slight leftward nasal septal deviation. Stable sinus post surgical changes on the right. Mild left sphenoid sinusitis is new. Clear remainder imaged paranasal sinuses and mastoid air cells. Atherosclerotic ICA calcifications. Intact calvarium. Normal scalp. Few missing teeth. CONCLUSION: New mild left sphenoid sinusitis with findings, including extensive microvascular changes, as detailed above. Thank you for the opportunity to participate in this patient's care.
--- NOTE | 2016-12-29 10:53 | XRay Report ---
LEFT HIP RADIOGRAPHS INDICATION: Left hip pain. COMPARISON: None similar. FINDINGS: An AP pelvic radiograph with frog-leg projection of the left hip demonstrate intact articulation. Imaged bilateral SI and hip joints appear intact. Nonobstructive bowel gas pattern. Few vascular calcifications. CONCLUSION: No acute radiographic abnormality. Thank you for the opportunity to participate in this patient's care.
[2016-12-29 12:56] VITALS: BP 185/98
== END 2016-12-29 13:00 | disposition home or self-care (01) ==
LOC: ED 07:09
DX: G43.909 Migraine, unspecified, not intractable, without status migrainosus (principal); I10 Essential (primary) hypertension; E11.9 Type 2 diabetes mellitus without complications; E78.00 Pure hypercholesterolemia, unspecified
CPT/HCPCS: 36415; 70450; 73502; 80053; 81001; 85025; 96372; 99284; J2270; J2405

== ENCOUNTER 2017-02-12 09:49 | Emergency (ER) | payer MEDICARE ==
--- NOTE | 2017-02-12 10:10 | Emergency Department Report ---
Stated Complaint: HIGH BP Time Seen by Provider: 02/12/17 10:03 - HPI History of Present Illness: PT c/o left sided chest pain that radiates down to abd and leg x months. PT states the pain has gradually worsened. 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 PT states she is compliant with her bp mediation. - ROS Review of Systems: + nausea + occasional vomiting (small amount) + watery mouth - sob - Exam Physical Exam: obese pt no chest wall tenderness RRR gcs 15 MSE screening note: Focused history and physical exam performed. Due to findings the following was ordered: ekg, labs, xr ED Disposition for MSE Condition: Stable
[2017-02-12 10:22] LABS: Basophils % (Auto) 0.7 % (0.0-1.8); Hemoglobin 14.4 gm/dl (10.1-14.3); Mean Corpuscular HGB Conc 33 % (30-34); Mean Corpuscular Hemoglobin 31 pg (28-32); Mean Corpuscular Volume 93 fl (79-97); Platelet Count 236 K/mm3 (140-440); Red Blood Count 4.72 M/mm3 (3.65-5.03); Red Cell Distribution Width 13.7 % (13.2-15.2); White Blood Count 11.5 K/mm3 (4.5-11.0)
[2017-02-12 10:33] LABS: INR 0.94 (0.87-1.13)
[2017-02-12 10:34] LABS: Partial Thromboplastin Time 35.5 Sec. (24.2-36.6)
--- NOTE | 2017-02-12 10:34 | XRay Report ---
CHEST 2 VIEWS INDICATION: Chest pain. COMPARISON: 04/23/2016 FINDINGS: Frontal and lateral chest radiographs demonstrate poorer inspiration with grossly stable, though mild exaggerated cardiomediastinal silhouette and slightly crowded lung markings. No focal consolidation, pleural effusion or CHF however. Stable post CABG changes, possible prosthetic heart valve and osseous structures. CONCLUSION: Mild hypoinflation without acute chest process or significant interval change, as described. Thank you for the opportunity to participate in this patient's care.
[2017-02-12 10:42] LABS: Alanine Aminotransferase 11 units/L (7-56); Albumin 4.1 g/dL (3.9-5); Albumin/Globulin Ratio 1.1 %; Alkaline Phosphatase 77 units/L (35-129); Anion Gap 21 mmol/L; Blood Urea Nitrogen 16 mg/dL (7-17); Calcium 9.7 mg/dL (8.4-10.2); Carbon Dioxide 26 mmol/L (22-30); Chloride 95.5 mmol/L (98-107); Creatine Kinase 48 units/L (30-135); Glucose 209 mg/dL (65-100); Lipase 14 units/L (13-60); Sodium 138 mmol/L (137-145)
[2017-02-12] MEDS ORDERED: CATAPRES PO ONE (11:40)
[2017-02-12] MEDS ORDERED: ZOFRAN IV ONE (11:40)
[2017-02-12] MEDS ORDERED: MORPHINE IV ONE (11:40)
[2017-02-12 12:58] LABS: Bilirubin,Urine NEG (Negative); Blood,Urine NEG (Negative); Ketones,Urine NEG (Negative); Leukocyte Esterase,Urine NEG (Negative); Mucus,Urine FEW /HPF; Nitrite,Urine NEG (Negative); Urobilinogen,Urine < 2.0 mg/dL (<2.0)
--- NOTE | 2017-02-12 13:55 | Cat Scan Report ---
CTA CHEST: Since Technique: Helical CT following IV contrast. Pulmonary embolus protocol. Sagittal and coronal reformatted images. Rotational MIP images. Findings: Contrast bolus is satisfactory. No pulmonary embolus is identified. The thyroid gland, tracheobronchial tree, esophagus, heart, pericardium, mediastinal vessels, lung stewart and bony thorax are unremarkable. Impression: No evidence for pulmonary embolus. Unremarkable CT chest with contrast.
--- NOTE | 2017-02-12 13:59 | Cat Scan Report ---
CT ANGIOGRAM ABDOMEN AND PELVIS HISTORY: Left flank pain, back pain. TECHNIQUE: Helical CT following IV contrast. Sagittal and coronal reformatted images. Rotational MIP images. NASCET criteria. FINDINGS: There are mild diffuse atherosclerotic plaques throughout the abdominal aorta. No dissection or aneurysm. There is less than 20% stenosis. The SMA, ABELARDO, celiac axis and bilateral single renal arteries are patent with less than 20% stenosis. There is moderate partially calcified plaque in the right common iliac artery with stenosis measuring up to 80%. The remainder of the bilateral iliac systems are patent with less than 30% stenosis. The liver, pancreas, spleen, kidneys, adrenal glands, bowel loops and bladder are unremarkable. The gallbladder and uterus have been surgically removed. No acute fracture is appreciated. IMPRESSION: No evidence for dissection. 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 No acute abdominal process appreciated.
[2017-02-12] MEDS ORDERED: NACL 0.9% 1000 ML 1,000 ML IV ONE (14:15)
--- NOTE | 2017-02-12 14:18 | Emergency Department Report ---
ED General Adult HPI - General Chief complaint: Chest Pain Stated complaint: HIGH BP Time Seen by Provider: 02/12/17 10:03 Source: patient Mode of arrival: Ambulatory Limitations: No Limitations - History of Present Illness Initial comments: 66-year-old female with a past medical history hypertension, diabetes, arthritis , and CABG presents to the Hospital complains of ongoing left-sided pain. Pain is in the left posterior thorax and extends to the left flank and left leg. Pain is constant with intermittent shooting pain. Worse with movement. Pain moderate to severe in intensity. Patient currently taken tramadol without relief. He denies shortness of breath, nausea, chest pain, diaphoresis, focal weakness, numbness, or incontinence patient has been seen by her primary care doctor for this same pain. Patient recently had an additional BP medication added to her regimen due to poorly controlled hypertension. 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 Patient didn't take any blood pressure medication prior to arrival. Patient saw her primary care doctor for this pain several days ago and followed up with a partner in the group today. She was sent to the ED for evaluation. Severity scale (0 -10): 10 - Related Data Previous Rx's Medication Instructions Recorded Last Taken Type AtorvaSTATin [Lipitor] 40 mg PO QHS #30 tablet 04/26/16 Unknown Rx Clopidogrel Bisulfate [Plavix] 75 mg PO DAILY #30 tablet 04/26/16 Unknown Rx FLUoxetine [PROzac] 20 mg PO QDAY #30 capsule 04/26/16 Unknown Rx Fenofibric Acid (Choline) 135 mg PO QDAY #30 capsule. 04/26/16 Unknown Rx [Trilipix] Insulin Aspart [NovoLOG Flexpen] 25 units SQ AC PRN #1 insuln.pen 04/26/16 Unknown Rx Insulin Detemir [Levemir VIAL] 30 units SUB-Q DAILY #1 vial 04/26/16 Unknown Rx Meloxicam [Mobic] 15 mg PO DAILY #15 tablet 04/26/16 Unknown Rx Metoprolol [Lopressor TAB] 25 mg PO DAILY #30 tablet 04/26/16 Unknown Rx Olmesartan/Amlodipin/Hcthiazid 1 each PO QDAY #30 tablet 04/26/16 Unknown Rx [Tribenzor 40-10-25 mg] Thyroid,Pork [[place] Thyroid] 120 mg PO DAILY #30 tablet 04/26/16 Unknown Rx Dicyclomine [Bentyl] 20 mg PO QID #10 tablet 06/24/16 Unknown Rx oxyCODONE /ACETAMINOPHEN [Percocet 1 tab PO Q6HR PRN #16 tablet 06/24/16 Unknown Rx 5/325] Promethazine [Phenergan TAB] 25 mg PO Q6HR PRN #20 tab 07/06/16 Unknown Rx Amoxicillin [Amoxicillin TAB] 875 mg PO BID #14 tablet 12/29/16 Unknown Rx Ondansetron [Zofran Odt] 4 mg PO Q8HR PRN #14 tab.rapdis 12/29/16 Unknown Rx traMADol [Ultram] 50 mg PO Q6HR PRN #14 tablet 12/29/16 Unknown Rx HYDROcodone/APAP 5-325 [[place] 1 each PO Q6HR PRN #20 tablet 02/12/17 Unknown Rx 5-325 mg TAB] Allergies Allergy/AdvReac Type Severity Reaction Status Date / Time ALEJANDRO Inhibitors Allergy Angioedema Verified 12/29/16 07:24 ED Review of Systems ROS: Stated complaint: HIGH BP Other details as noted in HPI Comment: All other systems reviewed and negative Other: Constitutional: No fevers chills Eyes: No eye pain visual changes or discharge ENT: No ear pain or throat pain Neck: Denies pain Respiratory: Denies cough wheezing shortness of breath at rest shortness of breath or exertion, orthopnea or PND Cardiovascular: Denies chest pain, palpitations, syncope Endocrine: Denies excessive sweating, intolerance to cold, increased thirst GI: Denies abdominal pain, nausea, vomiting, diarrhea, constipation, melena hematochezia : Denies dysuria, urinary frequency, or urgency Musculoskeletal: Denies back pain, joint swelling Skin: Denies rash, lesions, erythema Neurologic: Denies headache, numbness, weakness Psychiatric: Denies suicidal ideation, hallucinations Hematological/lymphatic: Denies easy bruising, lymphadenopathy ED Past Medical Hx - Past Medical History Hx Hypertension: Yes Hx Congestive Heart Failure: No Hx Diabetes: Yes Hx Arthritis: Yes Hx Seizures: Yes (As a young child) Hx Asthma: No Hx COPD: No Hx HIV: No Additional medical history: 'thyroid problems'. CAD. HIGH CHOLESTEROL - Surgical History Hx Open Heart Surgery: Yes (cabg? 4 vessels) Additional Surgical History: x 2, kidney surgery - Social History Smoking Status: Never Smoker Substance Use Type: None - Medications Home Medications: Home Medications Medication Instructions Recorded Confirmed Last Taken Type AtorvaSTATin [Lipitor] 40 mg PO QHS #30 tablet 04/26/16 Unknown Rx Clopidogrel Bisulfate [Plavix] 75 mg PO DAILY #30 tablet 04/26/16 Unknown Rx FLUoxetine [PROzac] 20 mg PO QDAY #30 capsule 04/26/16 Unknown Rx Fenofibric Acid (Choline) 135 mg PO QDAY #30 capsule.dr 04/26/16 Unknown Rx [Trilipix] Insulin Aspart [NovoLOG Flexpen] 25 units SQ AC PRN #1 insuln.pen 04/26/16 Unknown Rx Insulin Detemir [Levemir VIAL] 30 units SUB-Q DAILY #1 vial 04/26/16 Unknown Rx Meloxicam [Mobic] 15 mg PO DAILY #15 tablet 04/26/16 Unknown Rx Metoprolol [Lopressor TAB] 25 mg PO DAILY #30 tablet 04/26/16 Unknown Rx Olmesartan/Amlodipin/Hcthiazid 1 each PO QDAY #30 tablet 04/26/16 Unknown Rx [Tribenzor 40-10-25 mg] Thyroid,Pork [[place] Thyroid] 120 mg PO DAILY #30 tablet 04/26/16 Unknown Rx Dicyclomine [Bentyl] 20 mg PO QID #10 tablet 06/24/16 Unknown Rx oxyCODONE /ACETAMINOPHEN [Percocet 1 tab PO Q6HR PRN #16 tablet 06/24/16 Unknown Rx 5/325] Promethazine [Phenergan TAB] 25 mg PO Q6HR PRN #20 tab 07/06/16 Unknown Rx Amoxicillin [Amoxicillin TAB] 875 mg PO BID #14 tablet 12/29/16 Unknown Rx Ondansetron [Zofran Odt] 4 mg PO Q8HR PRN #14 tab.rapdis 12/29/16 Unknown Rx traMADol [Ultram] 50 mg PO Q6HR PRN #14 tablet 12/29/16 Unknown Rx HYDROcodone/APAP 5-325 [[place] 1 each PO Q6HR PRN #20 tablet 02/12/17 Unknown Rx 5-325 mg TAB] ED Physical Exam - General Limitations: No Limitations ED Course Vital Signs 02/12/17 02/12/17 02/12/17 10:05 12:22 12:40 Temperature 97.7 F Pulse Rate 71 71 Respiratory 71 H Rate Blood Pressure 237/119 214/92 214/92 Blood Pressure [Right] O2 Sat by Pulse 98 Oximetry 02/12/17 02/12/17 02/12/17 13:58 14:00 14:14 Temperature 98.3 F Pulse Rate 60 Respiratory 16 Rate Blood Pressure 214/92 214/92 Blood Pressure 84/53 [Right] O2 Sat by Pulse 91 96 98 Oximetry 02/12/17 02/12/17 02/12/17 14:15 14:31 14:38 Temperature Pulse Rate 58 L Respiratory 17 Rate Blood Pressure 83/49 90/55 Blood Pressure 90/55 [Right] O2 Sat by Pulse 97 95 95 Oximetry 02/12/17 02/12/17 02/12/17 14:57 15:00 15:30 Temperature Pulse Rate 59 L Respiratory 17 Rate Blood Pressure 105/60 107/67 Blood Pressure 98/59 [Right] O2 Sat by Pulse 98 93 96 Oximetry 02/12/17 02/12/17 02/12/17 16:01 16:30 17:00 Temperature Pulse Rate Respiratory Rate Blood Pressure 117/72 122/69 109/64 Blood Pressure [Right] O2 Sat by Pulse 89 88 95 Oximetry - Reevaluation(s) Reevaluation #1: 02/12/17 14:26 BP dropped significantly after declining per 1 L normal saline initiated. Patient denies chest pain, shows blood, diaphoresis, or lightheadedness. Reevaluation #2: 02/12/17 18:02 BP stable for several hours after initial drop in after receiving 1 L normal saline. Pain remains controlled. Patient will be discharged ED Medical Decision Making - Lab Data Result diagrams: 02/12/17 10:12 02/12/17 10:12 Lab Results 02/12/17 02/12/17 02/12/17 Range/Units 10:12 10:12 10:12 WBC 11.5 H (4.5-11.0) K/mm3 RBC 4.72 (3.65-5.03) M/mm3 Hgb 14.4 H (10.1-14.3) gm/dl Hct 44.0 H (30.3-42.9) % MCV 93 (79-97) fl MCH 31 (28-32) pg MCHC 33 (30-34) % RDW 13.7 (13.2-15.2) % Plt Count 236 (140-440) K/mm3 Lymph % (Auto) 14.0 (13.4-35.0) % [place] % (Auto) 5.5 (0.0-7.3) % Eos % (Auto) 1.0 (0.0-4.3) % Baso % (Auto) 0.7 (0.0-1.8) % Lymph # 1.6 (1.2-5.4) K/mm3 [place] # 0.6 (0.0-0.8) K/mm3 Eos # 0.1 (0.0-0.4) K/mm3 Baso # 0.1 (0.0-0.1) K/mm3 Seg Neutrophils % 78.8 H (40.0-70.0) % Seg Neutrophils # 9.1 H (1.8-7.7) K/mm3 PT 13.0 (12.2-14.9) Sec. INR 0.94 (0.87-1.13) APTT 35.5 (24.2-36.6) Sec. Sodium 138 (137-145) mmol/L Potassium 4.0 (3.6-5.0) mmol/L Chloride 95.5 L (98-107) mmol/L Carbon Dioxide 26 (22-30) mmol/L Anion Gap 21 mmol/L BUN 16 (7-17) mg/dL Creatinine 1.0 (0.7-1.2) mg/dL Estimated GFR > 60 ml/min BUN/Creatinine Ratio 16.00 % Glucose 209 H (65-100) mg/dL Calcium 9.7 (8.4-10.2) mg/dL Total Bilirubin 0.40 (0.1-1.2) mg/dL AST 15 (5-40) units/L ALT 11 (7-56) units/L Alkaline Phosphatase 77 (35-129) units/L Total Creatine Kinase 48 (30-135) units/L Troponin T < 0.010 (0.00-0.029) ng/mL Total Protein 8.0 (6.3-8.2) g/dL Albumin 4.1 (3.9-5) g/dL Albumin/Globulin Ratio 1.1 % Lipase 14 (13-60) units/L Urine Color (Yellow) Urine Turbidity (Clear) Urine pH (5.0-7.0) Ur Specific [place] (1.003-1.030) Urine Protein (Negative) mg/dL Urine Glucose (UA) (Negative) mg/dL Urine Ketones (Negative) mg/dL Urine Blood (Negative) Urine Nitrite (Negative) Urine Bilirubin (Negative) Urine Urobilinogen (<2.0) mg/dL Ur Leukocyte Esterase (Negative) Urine WBC (Auto) (0.0-6.0) /HPF Urine RBC (Auto) (0.0-6.0) /HPF U Epithel Cells (Auto) (0-13.0) /HPF Urine Mucus /HPF 02/12/17 Range/Units 12:07 WBC (4.5-11.0) K/mm3 RBC (3.65-5.03) M/mm3 Hgb (10.1-14.3) gm/dl Hct (30.3-42.9) % MCV (79-97) fl MCH (28-32) pg MCHC (30-34) % RDW (13.2-15.2) % Plt Count (140-440) K/mm3 Lymph % (Auto) (13.4-35.0) % [place] % (Auto) (0.0-7.3) % Eos % (Auto) (0.0-4.3) % Baso % (Auto) (0.0-1.8) % Lymph # (1.2-5.4) K/mm3 [place] # (0.0-0.8) K/mm3 Eos # (0.0-0.4) K/mm3 Baso # (0.0-0.1) K/mm3 Seg Neutrophils % (40.0-70.0) % Seg Neutrophils # (1.8-7.7) K/mm3 PT (12.2-14.9) Sec. INR (0.87-1.13) APTT (24.2-36.6) Sec. Sodium (137-145) mmol/L Potassium (3.6-5.0) mmol/L Chloride (98-107) mmol/L Carbon Dioxide (22-30) mmol/L Anion Gap mmol/L BUN (7-17) mg/dL Creatinine (0.7-1.2) mg/dL Estimated GFR ml/min BUN/Creatinine Ratio % Glucose (65-100) mg/dL Calcium (8.4-10.2) mg/dL Total Bilirubin (0.1-1.2) mg/dL AST (5-40) units/L ALT (7-56) units/L Alkaline Phosphatase (35-129) units/L Total Creatine Kinase (30-135) units/L Troponin T (0.00-0.029) ng/mL Total Protein (6.3-8.2) g/dL Albumin (3.9-5) g/dL Albumin/Globulin Ratio % Lipase (13-60) units/L Urine Color Yellow (Yellow) Urine Turbidity Clear (Clear) Urine pH 5.0 (5.0-7.0) Ur Specific [place] 1.023 (1.003-1.030) Urine Protein 30 mg/dl (Negative) mg/dL Urine Glucose (UA) 50 (Negative) mg/dL Urine Ketones Neg (Negative) mg/dL Urine Blood Neg (Negative) Urine Nitrite Neg (Negative) Urine Bilirubin Neg (Negative) Urine Urobilinogen < 2.0 (<2.0) mg/dL Ur Leukocyte Esterase Neg (Negative) Urine WBC (Auto) 2.0 (0.0-6.0) /HPF Urine RBC (Auto) 3.0 (0.0-6.0) /HPF U Epithel Cells (Auto) 1.0 (0-13.0) /HPF Urine Mucus Few /HPF - Radiology Data Radiology results: report reviewed CT angiogram chest: E. Unremarkable. CT angio abdomen and pelvis: No dissection. 80% stenosis of the right common femoral artery. - Medical Decision Making Plan to discharge patient home with outpatient follow-up and pain medications. Vascular follow-up will be recommended for common right iliac artery stenosis on CT and PMD follow-up will be recommended for further workup of her ongoing left-sided pain. - Differential Diagnosis Eva Ashwini, dissection, hypertensive emergency/urgency, UTI, MSK pain Critical Care Time: No Critical care attestation.: If time is entered above; I have spent that time in minutes in the direct care of this critically ill patient, excluding procedure time. ED Disposition Clinical Impression: Uncontrolled hypertension, Chronic left flank pain, Stenosis of left iliac artery Disposition: TO HOME OR SELFCARE Is pt being admited?: No Does the pt Need Aspirin: No Condition: Stable Instructions: Hypertension (ED), Peripheral Artery Disease (ED), Chronic Pain ( ED) Additional Instructions: Follow up with your primary care doctor for further workup and evaluation of the ongoing left-sided pain. Recommend follow up with the vascular surgeon regarding the incidental findings of arterial stenosis on cat scan. Take the copy report provided with you to your follow-up appointment. Prescriptions: HYDROcodone/APAP 5-325 [[place] 5-325 mg TAB] 1 each PO Q6HR PRN #20 tablet PRN Reason: Pain Referrals: PRIMARY CAREMD [Primary Care Provider] - 3-5 Days KANDI YI MD [Staff Physician] - 3-5 Days (Vascular doctor) Time of Disposition: 18:06
[2017-02-12 17:23] VITALS: BP 109/64
== END 2017-02-12 19:03 | disposition home or self-care (01) ==
LOC: ED 09:49
DX: I74.5 Embolism and thrombosis of iliac artery (principal); R10.9 Unspecified abdominal pain; I10 Essential (primary) hypertension; E11.9 Type 2 diabetes mellitus without complications; M19.90 Unspecified osteoarthritis, unspecified site; E78.00 Pure hypercholesterolemia, unspecified; Z91.048 Other nonmedicinal substance allergy status; Z79.4 Long term (current) use of insulin
CPT/HCPCS: 36415; 71020; 71275; 74174; 80053; 81001; 82550; 83690; 84484; 85025; 85610; 85730; 93005; 93010; 96361; 96374; 96375; 99285; J2270; J2405; J7030; Q9967

== ENCOUNTER 2017-05-03 07:03 | Emergency (ER) | payer MEDICARE ==
--- NOTE | 2017-05-03 17:42 | Emergency Department Report ---
ED Lower Extremity HPI - General Chief Complaint: Extremity Injury, Lower Stated Complaint: DIFFICULTY W STANDING/WALKING Time Seen by Provider: 05/03/17 17:25 Source: patient Mode of arrival: Wheelchair Limitations: No Limitations - History of Present Illness Initial Comments: 66 yo female who comes in today due to bilateral lower extremity pain times several months. She states that when she walks a short distance, she notices that her legs start to hurt and are extremely painful. She denies any trauma or falls. She was seen by home health and instructed to follow up as scheduled. She is scheduled to see her PMD on next week. History of diabetes, hyperlipidemia, htn, and cabg. Resting makes her legs feel better, however walking makes the pain worse. Pain described as aching, sharp, and a pins/ needles sensation, which goes the entire length of both legs with activity. Complaint: other (no trauma/falls ) -: month(s) (several ) Type of Injury: other (no injury ) Severity: moderate Improves With: rest Worsens With: movement, other (activity/walking ) Context: other (none ) Other Symptoms: other (none) Associated Symptoms: other (none ) Treatments Prior to Arrival: other (none ) - Related Data Previous Rx's Medication Instructions Recorded Last Taken Type AtorvaSTATin [Lipitor] 40 mg PO QHS #30 tablet 04/26/16 Unknown Rx Clopidogrel Bisulfate [Plavix] 75 mg PO DAILY #30 tablet 04/26/16 Unknown Rx FLUoxetine [PROzac] 20 mg PO QDAY #30 capsule 04/26/16 Unknown Rx Fenofibric Acid (Choline) 135 mg PO QDAY #30 capsule. 04/26/16 Unknown Rx [Trilipix] Insulin Aspart [NovoLOG Flexpen] 25 units SQ AC PRN #1 insuln.pen 04/26/16 Unknown Rx Insulin Detemir [Levemir VIAL] 30 units SUB-Q DAILY #1 vial 04/26/16 Unknown Rx Meloxicam [Mobic] 15 mg PO DAILY #15 tablet 04/26/16 Unknown Rx Metoprolol [Lopressor TAB] 25 mg PO DAILY #30 tablet 04/26/16 Unknown Rx Olmesartan/Amlodipin/Hcthiazid 1 each PO QDAY #30 tablet 04/26/16 Unknown Rx [Tribenzor 40-10-25 mg] Thyroid,Pork [[place] Thyroid] 120 mg PO DAILY #30 tablet 04/26/16 Unknown Rx Dicyclomine [Bentyl] 20 mg PO QID #10 tablet 06/24/16 Unknown Rx oxyCODONE /ACETAMINOPHEN [Percocet 1 tab PO Q6HR PRN #16 tablet 06/24/16 Unknown Rx 5/325] Promethazine [Phenergan TAB] 25 mg PO Q6HR PRN #20 tab 07/06/16 Unknown Rx Amoxicillin [Amoxicillin TAB] 875 mg PO BID #14 tablet 12/29/16 Unknown Rx Ondansetron [Zofran Odt] 4 mg PO Q8HR PRN #14 tab.rapdis 12/29/16 Unknown Rx traMADol [Ultram] 50 mg PO Q6HR PRN #14 tablet 12/29/16 Unknown Rx HYDROcodone/APAP 5-325 [[place] 1 each PO Q6HR PRN #20 tablet 02/12/17 Unknown Rx 5-325 mg TAB] Allergies Allergy/AdvReac Type Severity Reaction Status Date / Time ALEJANDRO Inhibitors Allergy Angioedema Verified 05/03/17 07:20 ED Review of Systems ROS: Stated complaint: DIFFICULTY W STANDING/WALKING Other details as noted in HPI Constitutional: denies: chills, fever Eyes: denies: eye pain, eye discharge, vision change ENT: denies: ear pain, throat pain Respiratory: denies: cough, shortness of breath, wheezing Cardiovascular: denies: chest pain, palpitations Endocrine: no symptoms reported Gastrointestinal: denies: abdominal pain, nausea, diarrhea Musculoskeletal: as per HPI Skin: denies: rash, lesions Neurological: denies: headache, weakness, paresthesias Psychiatric: denies: anxiety, depression Hematological/Lymphatic: denies: easy bleeding, easy bruising ED Past Medical Hx - Past Medical History Previous Medical History?: Yes Hx Hypertension: Yes Hx Congestive Heart Failure: No Hx Diabetes: Yes Hx Arthritis: Yes Hx Seizures: Yes (As a young child) Hx Asthma: No Hx COPD: No Hx HIV: No Additional medical history: 'thyroid problems'. CAD. HIGH CHOLESTEROL - Surgical History Hx Open Heart Surgery: Yes (cabg? 4 vessels) Additional Surgical History: x 2, kidney surgery - Social History Smoking Status: Never Smoker Substance Use Type: None - Medications Home Medications: Home Medications Medication Instructions Recorded Confirmed Last Taken Type AtorvaSTATin [Lipitor] 40 mg PO QHS #30 tablet 04/26/16 Unknown Rx Clopidogrel Bisulfate [Plavix] 75 mg PO DAILY #30 tablet 04/26/16 Unknown Rx FLUoxetine [PROzac] 20 mg PO QDAY #30 capsule 04/26/16 Unknown Rx Fenofibric Acid (Choline) 135 mg PO QDAY #30 capsule. 04/26/16 Unknown Rx [Trilipix] Insulin Aspart [NovoLOG Flexpen] 25 units SQ AC PRN #1 insuln.pen 04/26/16 Unknown Rx Insulin Detemir [Levemir VIAL] 30 units SUB-Q DAILY #1 vial 04/26/16 Unknown Rx Meloxicam [Mobic] 15 mg PO DAILY #15 tablet 04/26/16 Unknown Rx Metoprolol [Lopressor TAB] 25 mg PO DAILY #30 tablet 04/26/16 Unknown Rx Olmesartan/Amlodipin/Hcthiazid 1 each PO QDAY #30 tablet 04/26/16 Unknown Rx [Tribenzor 40-10-25 mg] Thyroid,Pork [[place] Thyroid] 120 mg PO DAILY #30 tablet 04/26/16 Unknown Rx Dicyclomine [Bentyl] 20 mg PO QID #10 tablet 06/24/16 Unknown Rx oxyCODONE /ACETAMINOPHEN [Percocet 1 tab PO Q6HR PRN #16 tablet 06/24/16 Unknown Rx 5/325] Promethazine [Phenergan TAB] 25 mg PO Q6HR PRN #20 tab 07/06/16 Unknown Rx Amoxicillin [Amoxicillin TAB] 875 mg PO BID #14 tablet 12/29/16 Unknown Rx Ondansetron [Zofran Odt] 4 mg PO Q8HR PRN #14 tab.rapdis 12/29/16 Unknown Rx traMADol [Ultram] 50 mg PO Q6HR PRN #14 tablet 12/29/16 Unknown Rx HYDROcodone/APAP 5-325 [[place] 1 each PO Q6HR PRN #20 tablet 02/12/17 Unknown Rx 5-325 mg TAB] ED Physical Exam - General Limitations: No Limitations General appearance: alert, in no apparent distress - Head Head exam: Present: atraumatic, normocephalic - Eye Eye exam: Present: normal appearance - ENT ENT exam: Present: mucous membranes moist - Neck Neck exam: Present: normal inspection - Respiratory Respiratory exam: Present: normal lung sounds bilaterally. Absent: respiratory distress - Cardiovascular Cardiovascular Exam: Present: regular rate, normal rhythm. Absent: systolic murmur, diastolic murmur, rubs, gallop - Extremities Exam Extremities exam: Present: other (pulses non-palpable (dorsalis pedis)- bilaterally, cold extremities-bilaterally ) - Back Exam Back exam: Present: normal inspection - Neurological Exam Neurological exam: Present: alert, oriented X3 - Psychiatric Psychiatric exam: Present: normal affect, normal mood - Skin Skin exam: Present: other (cold lower extremities-bilaterally ) ED Course Vital Signs 05/03/17 05/03/17 05/03/17 07:20 17:08 17:42 Temperature 98.4 F 97.4 F L Pulse Rate 72 92 H 75 Respiratory 18 18 18 Rate Blood Pressure 193/104 236/116 Blood Pressure 242/128 [Right] O2 Sat by Pulse 100 100 98 Oximetry - Reevaluation(s) Reevaluation #1: 05/03/17 17:45 Suspect peripheral vascular disease/intermittent claudication. The patient was instructed to follow up with her PMD on next week for evaluation. Critical care attestation.: If time is entered above; I have spent that time in minutes in the direct care of this critically ill patient, excluding procedure time. ED Disposition Clinical Impression: Intermittent claudication of both lower extremities due to atherosclerosis, Peripheral vascular disease of lower extremity Disposition: DC-01 TO HOME OR SELFCARE Is pt being admited?: No Does the pt Need Aspirin: No Condition: Stable Instructions: Peripheral Vascular Disorders (ED) Additional Instructions: Please follow up with your provider for further evaluation of your peripheral vascular disease. Referrals: JOSEY OZUNA MD [Primary Care Provider] - 3-5 Days Time of Disposition: 17:50
[2017-05-03] MEDS ORDERED: MORPHINE IM ONE (17:47)
[2017-05-03] MEDS ORDERED: ZOFRAN ODT PO ONE (17:47)
[2017-05-03 18:31] VITALS: BP 168/92
== END 2017-05-03 18:42 | disposition home or self-care (01) ==
LOC: ED 07:03
DX: I70.213 Atherosclerosis of native arteries of extremities with intermittent claudication, bilateral legs (principal); E11.9 Type 2 diabetes mellitus without complications; E78.5 Hyperlipidemia, unspecified; I10 Essential (primary) hypertension; M19.90 Unspecified osteoarthritis, unspecified site; I25.10 Atherosclerotic heart disease of native coronary artery without angina pectoris; Z95.1 Presence of aortocoronary bypass graft; Z88.8 Allergy status to other drugs, medicaments and biological substances
CPT/HCPCS: 96372; 99282; J2270; J2930; Q0162

== ENCOUNTER 2017-06-06 09:24 | Outpatient (CLI) | payer MEDICARE ==
--- NOTE | 2017-06-07 11:35 | Vascular Lab Report ---
Lower extremity vein mapping Reason for exam: Preoperative evaluation for lower extremity bypass conduit. Comments: On the right, the greater saphenous vein is ligated from prior CABG. On the right, the greater saphenous vein is ligated from prior CABG. On the left, the greater saphenous vein is diminutive in size from from the ankle to the below the knee. The portion at the knee is adequate in size. On the left, the greater saphenous vein is usable from the mid thigh to the hip. The portion of the lower thigh is diminutive in size. Impression: On the right, the greater saphenous vein is previously ligated. On the left, the greater saphenous vein only has short portions available for bypass.
== END 2017-06-06 09:25 | disposition home or self-care (01) ==
LOC: VAS 09:24
PROVIDERS: ATTEND Surgery Vascular Surgery